=== PATIENT | female | born 1970 | race African-American/Black ===

== ENCOUNTER 2017-11-17 11:41 | Emergency (ER) | payer BC | END 2017-11-17 13:24 | disposition home or self-care (01) | LOC: ERS 11:41 | DX: M54.31 Sciatica, right side (principal); B20 Human immunodeficiency virus [HIV] disease | CPT/HCPCS: 99283 ==

== ENCOUNTER 2018-08-26 12:57 | Emergency (ER) | payer BC ==
[2018-08-26 14:08] LABS: #Eosinphils 0.1 thou/uL (0.0-0.7); #Lymphocytes 1.1 thou/uL (1.20-3.40); #Monocytes 0.3 thou/uL (0.11-0.59); %Basophils 0.5 % (0.0-1.0); %Eosinophils 3.7 % (0.0-10.0); %Lymphocytes 43.2 % (21.0-51.0); %Monocytes 11.7 % (0.0-10.0); %Neutrophils 40.9 % (42.0-75.0); Hemoglobin 10.6 g/dL (12.0-16.0); Mean Corpuscular HGB CONC 32.7 g/dL (32.0-36.0); Mean Corpuscular Hemoglobin 28.3 pg (27.0-31.0); Mean Corpuscular Volume 86.7 fL (78.0-98.0); Mean Platelet Volume 9.6 fL (7.4-10.4); Platelet Count 96 thou/uL (130-400); RBC Distribution Width 12.8 % (11.5-14.5); Red Blood Cell (RBC) Count 3.73 mill/uL (4.20-5.40); White Blood Cell (WBC) Count 2.5 thou/uL (4.8-10.8)
[2018-08-26 14:26] LABS: ALT (SGPT) 19 U/L (8-55); AST (SGOT) 32 U/L (5-34); Albumin 3.5 g/dL (3.5-5.0); Alkaline Phosphatase 69 U/L (40-150); Anion Gap 11 mmol/L (10-20); BUN (Urea Nitrogen) 7 mg/dL (7.0-18.7); Bilirubin, Total 0.4 mg/dL (0.2-1.2); Calc. Creatinine Clearance 0 mL/min (70-130); Calcium 9.1 mg/dL (7.8-10.44); Carbon Dioxide 25 mmol/L (22-29); Chloride 105 mmol/L (98-107); Estimated GFR-MDRD Greater than 90; Globulin 6.2 g/dL (2.4-3.5); Glucose 88 mg/dL (70-105); Lipase 14 U/L (8-78); Protein, Total 9.7 g/dL (6.0-8.3); Sodium 137 mmol/L (136-145)
[2018-08-26 14:30] LABS: Bilirubin Small (Negative); Blood, Urine Negative (Negative); Clarity CLEAR (Clear); Glucose, Urine (Dipstick) Negative (Negative); Leukocyte Trace (Negative); Nitrite Negative (Negative); Protein, Urine (Dipstick) 30 mg/dL (Neg-Trace); Specific Gravity, Urine 1.022 (1.002-1.036); pH, Urine 5.5 (5.0-9.0)
[2018-08-26 14:31] LABS: MDiff Complete? YES; Platelet Morphology Comment Appears Decreased; Polychromasia SLIGHT = 2-3 cells (100X) (0-2/hpf)
[2018-08-26 14:33] LABS: Pregnancy Test - Urine (BHCG) Negative (Negative); Pregu Control Background? CLEAR/WHITE (CLR/WHITE); Pregu Control Bar Appear? YES (CONTROL BAR); Specific Gravity 1.022 (1.002-1.036)
[2018-08-26 14:38] LABS: Bacteria/HPF None Seen HPF (None Seen); Hyaline Casts/LPF 7-10 HYALINE CAST LPF (0-3 Hyaline); Pathc Cast-AUWi Flag 1.36 (0-2.49); RBC/HPF 0-3 HPF (0-3); Squamous Epithelial 0-3 HPF (0-3)
[2018-08-26] MEDS ORDERED: cefTRIAXone\\ROCEPHIN 1 GM VIAL ONE (15:14)
[2018-08-26] MEDS ORDERED: Sodium Chloride 0.9% 100 ML ONE (15:14)
== END 2018-08-26 16:31 | disposition home or self-care (01) ==
LOC: ERS 12:57
DX: N39.0 Urinary tract infection, site not specified (principal); B20 Human immunodeficiency virus [HIV] disease
CPT/HCPCS: 36415; 80053; 81003; 81015; 81025; 83690; 85025; 87040; 87077; 87086; 96361; 96365; J0696; J3490

== ENCOUNTER 2018-09-14 07:43 | Emergency (ER) | payer BC ==
--- NOTE | 2018-09-14 08:25 | RAD ---
EXAM: Chest one view: HISTORY: Syncope, occasional fever COMPARISON: None FINDINGS: Heart size: Within normal limits. Lungs: Clear of acute process. No evidence for pneumonia, pleural effusion, acute edema, or pneumothorax, or other significant acute process. IMPRESSION: No significant acute intrathoracic disease.
[2018-09-14 08:29] LABS: #Eosinphils 0.1 thou/uL (0.0-0.7); #Lymphocytes 0.9 thou/uL (1.20-3.40); #Monocytes 0.1 thou/uL (0.11-0.59); #Neutrophils 2.3 thou/uL (1.40-6.50); %Basophils 0.2 % (0.0-1.0); %Lymphocytes 26.6 % (21.0-51.0); %Monocytes 3.5 % (0.0-10.0); %Neutrophils 67.8 % (42.0-75.0); Mean Corpuscular HGB CONC 31.7 g/dL (32.0-36.0); Mean Corpuscular Hemoglobin 27.4 pg (27.0-31.0); Mean Corpuscular Volume 86.4 fL (78.0-98.0); Mean Platelet Volume 10.2 fL (7.4-10.4); Platelet Count 73 thou/uL (130-400); RBC Distribution Width 12.6 % (11.5-14.5); Red Blood Cell (RBC) Count 3.65 mill/uL (4.20-5.40); White Blood Cell (WBC) Count 3.4 thou/uL (4.8-10.8)
[2018-09-14] MEDS ORDERED: Ondansetron PF 4 MG/2 ML Vial ONE (08:30)
[2018-09-14 08:33] LABS: Bacteria/HPF 1+ HPF (None Seen); Bilirubin Negative (Negative); Blood, Urine Negative (Negative); Clarity Clear (Clear); Glucose, Urine (Dipstick) Normal (Negative); Leukocyte Negative Leu/uL (Negative); Nitrite Negative (Negative); Protein, Urine (Dipstick) 70 mg/dL (Neg-Trace); RBC/HPF None Seen HPF (0-3); Red Blood Cell Cast 0-3 LPF (None Seen); Squamous Epithelial 0-3 HPF (0-3); Urobilinogen Normal mg/dL (Less than 2)
[2018-09-14 08:39] LABS: ALT (SGPT) 18 U/L (8-55); AST (SGOT) 39 U/L (5-34); Albumin 3.3 g/dL (3.5-5.0); Alkaline Phosphatase 67 U/L (40-150); Anion Gap 13 mmol/L (10-20); BUN (Urea Nitrogen) 8 mg/dL (7.0-18.7); Bilirubin, Total 0.4 mg/dL (0.2-1.2); CK (CPK) 40 U/L (29-168); Calc. Creatinine Clearance 0 mL/min (70-130); Calcium 8.4 mg/dL (7.8-10.44); Carbon Dioxide 20 mmol/L (22-29); Chloride 101 mmol/L (98-107); Estimated GFR-MDRD 75; Globulin 5.8 g/dL (2.4-3.5); Glucose 116 mg/dL (70-105); Lipase 14 U/L (8-78); Magnesium 1.9 mg/dL (1.6-2.6); Potassium 3.7 mmol/L (3.5-5.1); Protein, Total 9.1 g/dL (6.0-8.3); Sodium 130 mmol/L (136-145)
[2018-09-14 08:48] LABS: Platelet Morphology Comment Appears Decreased; RBC Morphology Normal
[2018-09-14] MEDS ORDERED: Lidocaine Viscous Sol 2% 15 ml UD Cup ONE (10:15)
[2018-09-14] MEDS ORDERED: Mag-Al 1200 mg/1200 mg/30 ML UDCUP ONE (10:15)
--- NOTE | 2018-09-14 10:48 | ULT ---
Exam: Right upper quadrant ultrasound: HISTORY: Right upper quadrant pain COMPARISON: None FINDINGS: Visualized liver:Unremarkable. Gallbladder:No evidence of gallstones, wall thickening, edema, or pericholecystic fluid. Common bile duct:Within normal limits. The visualized pancreas and right kidney are unremarkable. No evidence for abscess or abnormal fluid collection in the right upper quadrant. IMPRESSION: Unremarkable right upper quadrant ultrasound. No evidence of gallstones.
== END 2018-09-14 11:10 | disposition home or self-care (01) ==
LOC: ERS 07:43
DX: N39.0 Urinary tract infection, site not specified (principal); R55 Syncope and collapse
CPT/HCPCS: 36415; 71045; 76705; 80053; 81003; 81015; 82550; 83605; 83690; 83735; 84484; 85025; 93005; 96361; 96374; J2405

== ENCOUNTER 2018-09-29 14:28 | Inpatient (IN) | payer BC ==
[~2018-09-29 14:28] MED LIST: ISOVUE-370 76%-LOCM 1 ML ONE
[2018-09-29 17:07] VITALS: BMI 31.2
--- NOTE | 2018-09-29 19:00 | CON ---
DATE OF CONSULTATION: 09/29/2018 REASON FOR CONSULTATION: HIV with advanced immunosuppression with fever, nausea , vomiting, abdominal pain. 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 She was treated with a marked improvement in her overall status and increase in CD4 cell count from less than 50 to above 300 and suppression of viral load on active antiretroviral therapy. Unfortunately, the patient stopped coming to the clinic about 2 years ago and has stopped taking her medications and developed regression of her immunological virological control and showed up in my clinic a few days ago with fever, cough, vomiting, and abdominal pain. We ordered resumption of antiretroviral therapy, the same one she had been before on Descovy and Tivicay and also prescribed Bactrim Double Strength three times a day. A few days later, she called me saying that she was having a lot of vomiting, which I feel is due to the Bactrim component of her re-initiation of therapy. We advised her to stop both medications and contact me when the vomiting resolves, so we could start with a new medication and today she called me stating that she was having fever up to 102 to 103, abdominal cramps, and abdominal pain, so she has been admitted for further evaluation. CT abdomen and pelvis and chest x-ray, opportunistic pathogen workup. Currently, she appears better than when I saw her in the office. She denies headaches. No visual symptoms. No sore throat, odynophagia, or dysphagia. She has a sensation of pain in the epigastric area. No diarrhea. No bleeding. No genitourinary symptoms. No joint symptoms. No neurological symptoms. MEDICAL HISTORY: Disseminated histoplasmosis, HIV infection with advanced immunosuppression in the past treated with recovery of immune function and control of viremia and then discontinuation of treatment and regression of control. Appendicitis with appendectomy in 2013. ALLERGIES: NO KNOWN DRUG ALLERGY REPORTED. SHE IS INTOLERANT TO IBUPROFEN. MEDICATIONS: She had been off medications. She is supposed to restart Symtuza , had been on Bactrim, but it had to be discontinued. FAMILY HISTORY: Noncontributory. SOCIAL HISTORY: Never smoker. 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 No drug use. PHYSICAL EXAMINATION: VITAL SIGNS: Temperature 101.5, blood pressure 120/70, pulse is 88, and respirations are 18. SKIN: Normal. There is no lymphadenopathy. HEENT: Ocular movements are conjugate. Sclerae are white. Pupils are equal. Conjunctivae normal. Nasal passages patent. Oropharyngeal examination, normal. Numerous teeth in place with minor gum disease. NECK: Supple. No jugular vein distention. No carotid bruits. LUNGS: Symmetric air entry. HEART: S1 and S2. Regular rate. No S3 or S4. ABDOMEN: Soft and not distended. Tenderness in the epigastric area. Bowel sounds are present. EXTREMITIES: No joint inflammatory activity. Pulses are 2+ in dorsalis pedis. Cap refill normal. Plantar response are flexor. Moves extremities equally. NEUROLOGIC: Cognitive function appears to be intact. LABORATORY DATA: The labs are pending. The labs from the recent clinic draw about 2 weeks ago showed a CD4 cell count of 28, and a viral load of 6,030,000 viral copies. QuantiFERON was negative. Hepatitis C negative. Hepatitis A negative. RPR nonreactive. GC and chlamydia, negative. Total white cell count was 1.9 and hemoglobin 9.8. ASSESSMENT: 1. Longstanding human immunodeficiency virus infection with previous disseminated histoplasmosis with good recovery of immune function and good viremia control on previous antiretroviral therapy. 2. Discontinuation of treatment and discontinuation of clinic visits for the past few years and now development of likely opportunistic either infectious or neoplastic process with clinical deterioration, which led her to showing up in my clinic again. The patient is having fever up to 102 and abdominal complaints and probably has recurrence of disseminated histoplasmosis or another opportunistic process. We will start workup with abdomen and pelvis CT with chest x-ray and may need EGD and we will submit opportunistic infection assays and then decide what course of treatment will be. May need EGD as well and bone marrow evaluation depending on clinical course. Job ID: [id number] [facility]
[2018-09-29 19:54] LABS: BHCG - Serum Negative (NEGATIVE); Pregs Control Background? CLEAR/WHITE (CLR/WHITE); Pregs Control Bar Appear? YES (CONTROL BAR)
[2018-09-29 20:04] LABS: Lactic Acid 1.1 mmol/L (0.5-2.2)
--- NOTE | 2018-09-29 20:31 | RAD ---
EXAM: CHEST TWO VIEWS: 09/29/18 HISTORY: Syncope. COMPARISON: 09/14/18. FINDINGS: Heart size is normal. The lungs are clear. No confluent pneumonia, overt edema, or pleural effusion. IMPRESSION: No acute intrathoracic disease. POS: RRE
[2018-09-29] MEDS: Sodium Chloride 0.9% 1,000 ML IV SCH (20:37)
[2018-09-29] MEDS ORDERED: Acetaminophen 650 MG Suppository PR PRN (20:48)
[2018-09-29] MEDS ORDERED: Acetaminophen 325 MG TAB PO PRN (20:49)
--- NOTE | 2018-09-29 23:03 | CT ---
CT abdomen and pelvis with IV contrast. Oral contrast was administered. INDICATIONS: Abdominal pain. Fever. HIV positive. COMPARISON: 07/10/2013 FINDINGS: Lung bases are clear Liver, spleen, and pancreas appear unremarkable. Stomach and duodenum appear unremarkable. Adrenal glands appear normal. Kidneys appear unremarkable. Collecting structures and urinary bladder appear unremarkable. Small bowel loops are normal caliber and exhibit normal fold pattern. Appendix is surgically absent. Colon is unremarkable. Aorta is normal caliber. Nonspecific para-aortic lymphadenopathy. Nonspecific mesenteric adenopathy Uterus is enlarged and lobulated. There is evidence of a fibroid from the uterine fundus measuring 4. 6 cm. Another fibroid from the right myometrium measures 5 cm. An exophytic mass or fibroid in the right pelvis measures 5.5 cm. Subcutaneous tissues, abdominal wall, and muscular structures appear unremarkable. Osseous structures appear unremarkable. IMPRESSION: Large lobulated heterogeneous uterus suggesting numerous myometrial fibroids. A masslike area in the right pelvis probably represents an exophytic fibroid measuring 5 to 6 cm. MRI of pelvis could confirm that these masses all represent leiomyoma. Nonspecific mesenteric and periaortic adenopathy, probably related to HIV status. Otherwise no acute process identified.
[2018-09-29] MEDS ORDERED: Ondansetron PF 4 MG/2 ML Vial IVP PRN (23:10)
[2018-09-29] MEDS ORDERED: Ondansetron ODT 4 MG TAB PO PRN (23:10)
[2018-09-29] MEDS ORDERED: Meropenem 1 GM in Sodium Chloride 0.9% 100 ML IVPB SCH (23:15)
[2018-09-29] MEDS ORDERED: Vancomycin HCl 1 GM in Premix Bag 1 BAG IVPB SCH (23:15)
[2018-09-29] MEDS ORDERED: Vancomycin HCl 1.5 GM in Sodium Chloride 0.9% 250 ML 300 ML IVPB SCH (23:30)
[2018-09-30 00:44] LABS: INR-International Normal Ratio 1.3; PTT 41.5 SEC (22.9-36.1); Prothrombin Time 16.3 SEC (12.0-14.7)
[2018-09-30 00:59] LABS: ALT (SGPT) 17 U/L (8-55); AST (SGOT) 42 U/L (5-34); Albumin 3.1 g/dL (3.5-5.0); Alkaline Phosphatase 66 U/L (40-150); Anion Gap 12 mmol/L (10-20); BUN (Urea Nitrogen) 5 mg/dL (7.0-18.7); Bilirubin, Total 0.7 mg/dL (0.2-1.2); CRP (Inflammatory) 7.99 mg/dL (= or < 0.5); Calc. Creatinine Clearance 109 mL/min (70-130); Calcium 8.5 mg/dL (7.8-10.44); Carbon Dioxide 21 mmol/L (22-29); Chloride 95 mmol/L (98-107); Estimated GFR-MDRD Greater than 90; Globulin 5.9 g/dL (2.4-3.5); Glucose 116 mg/dL (70-105); Lipase 13 U/L (8-78); Magnesium 1.6 mg/dL (1.6-2.6); Potassium 3.9 mmol/L (3.5-5.1); Sodium 124 mmol/L (136-145)
[2018-09-30] MEDS ORDERED: Micafungin 100 MG in Sodium Chloride 0.9% 100 ML IVPB SCH (01:00)
[2018-09-30 01:08] LABS: #Lymphocytes 0.5 thou/uL (1.20-3.40); #Monocytes 0.2 thou/uL (0.11-0.59); #Neutrophils 2.1 thou/uL (1.40-6.50); %Eosinophils 1.2 % (0.0-10.0); %Lymphocytes 18.7 % (21.0-51.0); %Monocytes 7.6 % (0.0-10.0); %Neutrophils 72.5 % (42.0-75.0); Hemoglobin 8.5 g/dL (12.0-16.0); Mean Corpuscular HGB CONC 32.4 g/dL (32.0-36.0); Mean Corpuscular Hemoglobin 27.2 pg (27.0-31.0); Mean Corpuscular Volume 84.1 fL (78.0-98.0); Mean Platelet Volume 11.3 fL (7.4-10.4); Platelet Count 73 thou/uL (130-400); Platelet Morphology Comment Appears Decreased; RBC Distribution Width 12.6 % (11.5-14.5); Red Blood Cell (RBC) Count 3.11 mill/uL (4.20-5.40); White Blood Cell (WBC) Count 2.8 thou/uL (4.8-10.8)
[2018-09-30] MEDS: Piperacillin/Tazobactam 3.375 GM in Sodium Chloride 0.9% 100 ML IVPB SCH ×3 (02:30→08:34)
[2018-09-30] MEDS: Sodium Chloride 0.9% 1,000 ML IV SCH ×2 (04:28→08:34)
[2018-09-30 06:42] LABS: #Lymphocytes 0.4 thou/uL (1.20-3.40); #Monocytes 0.1 thou/uL (0.11-0.59); #Neutrophils 2.1 thou/uL (1.40-6.50); %Basophils 0.3 % (0.0-1.0); %Eosinophils 0.5 % (0.0-10.0); %Lymphocytes 15.7 % (21.0-51.0); %Monocytes 4.9 % (0.0-10.0); %Neutrophils 78.7 % (42.0-75.0); Mean Corpuscular HGB CONC 30.9 g/dL (32.0-36.0); Mean Corpuscular Volume 84.1 fL (78.0-98.0); Mean Platelet Volume 11.2 fL (7.4-10.4); Platelet Count 74 thou/uL (130-400); RBC Distribution Width 12.9 % (11.5-14.5); Red Blood Cell (RBC) Count 3.07 mill/uL (4.20-5.40); White Blood Cell (WBC) Count 2.6 thou/uL (4.8-10.8)
[2018-09-30 06:57] LABS: Anion Gap 10 mmol/L (10-20); BUN (Urea Nitrogen) 5 mg/dL (7.0-18.7); Calc. Creatinine Clearance 110 mL/min (70-130); Calcium 8.7 mg/dL (7.8-10.44); Carbon Dioxide 24 mmol/L (22-29); Chloride 95 mmol/L (98-107); Estimated GFR-MDRD Greater than 90; Glucose 113 mg/dL (70-105); Potassium 3.7 mmol/L (3.5-5.1); Sodium 125 mmol/L (136-145)
[2018-09-30] MEDS ORDERED: Enoxaparin Sodium 40 MG/0.4 ML SYRINGE SC SCH (09:00)
[2018-09-30] MEDS ORDERED: Vancomycin HCl 1.25 GM in Sodium Chloride 0.9% 250 ML 250 ML IVPB SCH ×2 (11:00→22:00)
[2018-09-30 11:15] VITALS: BP 157/83; TEMP 99.7
--- NOTE | 2018-09-30 11:43 | PDOC.HOSPP ---
- Subjective Subjective: Patient seen and examined. No overnight events, pt is confused - Objective Vital Signs & Weight: Vital Signs (12 hours) Temp Pulse Resp BP Pulse Ox 09/30/18 11:12 99.7 F H 106 H 16 157/83 H 100 09/30/18 07:24 97.5 F L 111 H 16 134/81 99 09/30/18 06:46 98.4 F 09/30/18 04:35 101.4 F H 108 H 16 138/84 100 09/30/18 01:35 99.3 F 09/30/18 00:00 100.4 F H 101 H 16 133/68 99 Weight Weight 170 lb 12.8 oz I&O: 09/29/18 09/30/18 10/01/18 06:59 06:59 06:59 Intake Total 1999 Balance 1999 Result Diagrams: 09/30/18 06:09 09/30/18 06:09 Radiology Reviewed by me: Yes ROS - Review of Systems All systems: All other ROS were reviewed and found negative. Eyes: denies: pain, vision change, conjunctivae inflammation, eyelid inflammation, redness, other ENT: denies: ear pain, ear discharge, nose pain, nose discharge, nose congestion , mouth pain, mouth swelling, throat pain, throat swelling, other Respiratory: denies: cough, dry, shortness of breath, hemoptysis, SOB with excertion, pleuritic pain, sputum, wheezing, other Cardiovascular: denies: chest pain, palpitations, orthopnea, paroxysmal noc. dyspnea, edema, light headedness, other Gastrointestinal: denies: nausea, vomitting, abdominal pain, diarrhea, constipation, melena, hematochezia, other Genitourinary: denies: dysuria, frequency, incontinence, hematuria, retention, other Musculoskeletal: denies: neck pain, shoulder pain, arm pain, back pain, hand pain, leg pain, foot pain, other Skin: denies: rash, lesions, riley, bruising, other Neurological: reports: confusion. denies: weakness, numbness, incoordination, change in speech, seizures, other - Medication Medications: Active Medications Generic Name Dose Route Start Last Admin Trade Name Freq PRN Reason Stop Dose Admin Acetaminophen 650 mg 09/29/18 20:48 09/29/18 22:03 Tylenol NH 650 mg Q4H PRN Administration Headache/Fever or Pain Acetaminophen 650 mg 09/29/18 20:49 09/30/18 04:46 Tylenol PO 650 mg Q4H PRN Administration Fever > 101 Sodium Chloride 1,000 mls @ 150 mls/hr 09/29/18 18:45 09/30/18 08:34 Normal Saline 0.9% IV 1,000 mls .[id number] VANDA Administration Micafungin Sodium 100 mg/ 100 mls @ 100 mls/hr 09/30/18 01:00 09/30/18 01:29 Sodium Chloride IVPB 100 mls Q24H VANDA Administration Piperacillin Sod/Tazobactam 100 mls @ 200 mls/hr 09/30/18 02:00 09/30/18 08: 34 Sod 3.375 gm/ Sodium Chloride IVPB 100 mls 0200,0800,1400,2000 VANDA Administration - Exam NAD, awake alert Eye: anicteric sclera ENT: normocephalic atraumatic, no oropharyngeal lesions Neck: symmetric, no JVD, no Thyromegaly Heart: RRR, no murmur, no gallops Respiratory: CTAB, no wheezes, no rales, no ronchi Gastrointestinal: soft, non-tender, non-distended, normal bowel sounds Extremities: no cyanosis, no clubbing, no edema Skin: normal turgor, no lesions, no rashes Neurological: CN's grossly intact, normal sensation to touch, no focal deficits Musculoskeletal: normal tone, normal strength Psychiatric: normal affect Hosp A/P (1) H/O AIDS with histoplasmosis Code(s): B20 - HUMAN IMMUNODEFICIENCY VIRUS [HIV] DISEASE; Z86.19 - PERSONAL HISTORY OF OTHER INFECTIOUS AND PARASITIC DISEASES Status: Acute (2) Hyponatremia Code(s): E87.1 - HYPO-OSMOLALITY AND HYPONATREMIA Status: Acute (3) Obesity (BMI 30.0-34.9) Code(s): E66.9 - OBESITY, UNSPECIFIED Status: Acute (4) Pancytopenia with fever Code(s): D61.818 - OTHER PANCYTOPENIA; R50.81 - FEVER PRESENTING WITH CONDITIONS CLASSIFIED ELSEWHERE Status: Acute - Plan old records reviewed/req, plan discussed w/ family, continue antibiotics Dr Reyna following continue to follow culture further testing and treatment will defer to ID medication reviewed as below symptomatic treatment
--- NOTE | 2018-09-30 16:15 | DIS ---
DATE OF ADMISSION: 09/29/2018 DATE OF DISCHARGE: 09/30/2018 PRIMARY CARE PHYSICIAN: Dr. Willi Quiñonez. DISCHARGE DISPOSITION: Against medical advice. PRIMARY DISCHARGE DIAGNOSES: Pancytopenia with fever, hyponatremia. SECONDARY DISCHARGE DIAGNOSES: History of acquired immune deficiency syndrome with histoplasmosis, obesity with BMI 31. PRIMARY PROCEDURE/OPERATION: None. RADIOLOGICAL INVESTIGATION: Abdomen and pelvis CT scan, chest x-ray. SIGNIFICANT LABORATORY DATA: WBC 2.6, hemoglobin 8.0, platelets 74. INR 1.3. Sodium 125, CRP 7.9. DISCHARGE MEDICATIONS: The patient left against medical advice. CONTRAINDICATION: None. CODE STATUS: Full code. INPATIENT CAMERA MACHINIST: Dr. Reyna was consulted while in hospital. TEST RESULT PENDING ON DISCHARGE: None. ALLERGIES: NO KNOWN DRUG ALLERGIES. DISCHARGE PLAN: Posthospital, the patient will follow up with primary care physician as well as Dr. Reyna as instructed. HOSPITAL COURSE: A 48-year-old female, who was admitted yesterday by Dr. Castellanos. There is no H and P dictated at this point. I am seeing this patient only as a progress note. This patient was already evaluated by Dr. Reyna yesterday. She has underlying history of AIDS and histoplasmosis and this time, she was admitted for fever of unknown origin. She has pancytopenia. Dr. Reyna was thinking that she might have recurrence of histoplasmosis. He ordered CT abdomen and pelvis, which showed myometrial lesion. The patient also had hyponatremia, which was treated with IV fluid. The patient was given broad-spectrum antibiotic therapy and antifungal therapy. Unfortunately, this patient was extremely noncompliant and she was not taking micafungin and Zosyn while in hospital as well as she was not taking any Zosyn. The patient is able to make her own decision. She is alert and awake. She understand consequences of going home. We tried to explain her to stay in hospital, but unfortunately, it was not successful, and the patient decided to leave against medical advice. Job ID: [id number]
--- NOTE | 2018-09-30 17:42 | PRG ---
DATE OF SERVICE: 09/30/2018 SUBJECTIVE: Ms. Ashraf is all dressed up, sitting by the bedside. Reportedly has declined a number of interventions including treatments. Does not want to have any IV started and she wants to go home basically. I have discussed with her and with her daughter and explained that we still do not have a diagnosis. Her CT abdomen and pelvis did not show any specific abnormality other than lymphadenopathy. Her chest x-ray did not have any pneumonia. We are concerned with the possibility of recurrence of disseminated histoplasmosis or another opportunistic infectious process. All the assays have been submitted. PHYSICAL EXAMINATION: VITAL SIGNS: Showed a T-max of 101.4, BP 150/80, pulse 106, respirations 16, and O2 saturation 100. GENERAL: She does not appear in distress. She is awake, oriented, follows commands. LUNGS: Clear. HEART: S1 and S2. Regular rate. ABDOMEN: Soft, not distended. EXTREMITIES: Moves extremities equally. LABORATORY DATA: White cell count 2.6, hemoglobin 8, platelets 74,000. INR 1.3. Chemistry with CRP 7.99, albumin 3.1, AST 42, bilirubin 0.7, ALT 17, alkaline phosphatase 66. Blood culture thus far negative with Cryptococcus antigen, final result was negative. ASSESSMENT AND DISCUSSION: Advanced human immunodeficiency virus infection due to poor compliance with anti-retroviral therapy and clinic visits. It seems like there is a little bit of a paranoid delusion, although she is not overtly psychotic, but she seems to have a lot of suspicion regarding the management of her disease. This may be part of the reason why she stopped coming to visits and stop taking treatments. Anyways, she has declined various interventions and is really insisting in going home. Does not want us to continue managing her case and I think she is not inclined to come back for clinic visits. She is going to establish care with another physician in [facility], who is a primary care physician and I will contact him and discuss her case with him. Maybe she would benefit from a psychotropic medications such as Abilify, which might make her less resistant to treatment. We still have to identify and treat this likely opportunistic process. She has a very low CD4 cell count and she will not survive this illness if she continues with this behavior. Job ID: [id number]
--- NOTE | 2018-10-01 09:15 | HP ---
PRIMARY CARE PHYSICIAN: The patient has no PCP. The patient follows with Dr. Reyna as outpatient. However, has been noncompliant. CODE STATUS: Full code. TIME OF EVALUATION: 11:13 p.m. This note has been placed late due to dictation system problems. HISTORY OF PRESENT ILLNESS: This is a 48-year-old female patient, past medical history of HIV, noncompliant, has diagnosis 3 years ago, however, has not been following with her medications. She is used to follow with Dr. Reyna. However, she had not been as I mentioned very compliant. The patient had visited Dr. Reyna a few days ago with symptoms of fever, cough, vomiting, abdominal pain and antiretroviral therapy was restarted associated with Bactrim DS. Due to discontinued. She continued to have the symptoms, came here to the hospital and she has been seen at bedside, she seems to be stable. The patient is requesting to go home. However, we have explained to her that we need to find out what is the reason for her symptoms. A CAT scan has been done, it was negative. No significant abnormalities. We will follow recommendation as per Dr. Reyna. The symptoms were mild to moderate. No clear triggers, no alleviating factors. ALLERGIES: THE PATIENT HAS INTOLERANCE TO IBUPROFEN. REPORTED MEDICATIONS: The patient has no medications. FAMILY HISTORY: Reviewed and noncontributory for current presentation. PAST MEDICAL HISTORY: As reported in HPI. The patient has HIV. SOCIAL HISTORY: The patient lives at home with family. PAST SURGICAL HISTORY: The patient has a history of and tubal ligation. REVIEW OF SYSTEMS: CONSTITUTIONAL: The patient has fever, chills, and generalized weakness. RESPIRATORY: No cough, sputum production, or shortness of breath. CARDIOVASCULAR: No chest pain or palpitation. GASTROINTESTINAL: No nausea, vomiting, diarrhea, or abdominal pain. MITER GRINDER OPERATOR: No dizziness, headache, or feeling lightheaded. GENITOURINARY: No burning on urination. EXTREMITIES: No leg swelling. PHYSICAL EXAMINATION: VITAL SIGNS: On presentation, temperature was 101.5, blood pressure 120/70 with heart rate 88, respiratory rate was 18. GENERAL APPEARANCE: The patient is alert, oriented, not in acute distress. HEENT: Eyes, normal conjunctivae. Moist oral mucosa. Anicteric. No JVD. RESPIRATORY: Bilateral air entry. No rales or wheezes. Symmetric expansion. CARDIOVASCULAR: Normal rate. Regular rhythm. No murmurs, no gallop, no edema. ABDOMEN: Soft. Normal bowel sounds. MUSCULOSKELETAL: Baseline range of motion and strength. SKIN: Warm, intact. No pallor. No rash. No redness. Capillary refill seems to be intact. NEURO: No evidence of any new focal weakness. Cranial nerves seem to be intact. PSYCH: The patient is in good mood. No anxiety. Optimal judgment. IMAGING: Abdomen and pelvis CT was done. The patient has large lobulated heterogeneous uterus suggesting numerous myometrial fibroids, a masslike area of the right pelvis probably represents exophytic fibroid measuring 5-6 cm. MRI of the pelvis could confirm that these masses all represent leiomyoma, nonspecific mesenteric and periaortic adenopathy probably related to HIV status. Otherwise, no acute process identified. LABORATORY DATA: Reviewed. The patient has a white count of 2.8, hemoglobin 8.5, MCV 84.1, platelet count 73. PT 16.3, INR 1.3, PTT 41.5. Chemistry; sodium 124, potassium 3.9, chloride 95, carbon dioxide 21, anion gap 12, BUN 5, creatinine 0.7, GFR greater than 90, glucose 116, lactic acid 1.1, calcium 9.5, magnesium 1.6, total bilirubin 0.7. LFTs were negative. LABORATORY DATA: White count 2.8, hemoglobin 8.5, MCV 84, platelet count 73. Coagulation; PT 16.3, INR 1.3, PTT 41.5. Chemistry; sodium 124, potassium 3.9, chloride 95, carbon dioxide 21, anion gap 12, BUN 5, creatinine 0.7, glucose 116, GFR greater than 90. Lactic acid was normal. Calcium 8.5, magnesium 1.6, alkaline phosphatase 66, C-reactive protein 7.9. PSA was normal. test was negative. ASSESSMENT AND PLAN: The patient will be placed in the hospital with following medical problems. 1. Human immunodeficiency virus infection. The patient is noncompliant. CD4 count was low, was in the 20s. Dr. Reyna has been following this patient, but she is noncompliant, not willing to have any treatment. CT abdomen was negative. We will follow Dr. Reyna' recommendations. 2. Pancytopenia, likely secondary to human immunodeficiency virus infection. The patient needs to be started on antiretroviral therapy as per Dr. Reyna' recommendation. 3. Hyponatremia, sodium 124. We will replace sodium. We will monitor. This is chronic. 4. Deep venous thrombosis prophylaxis. The patient is willing to go home. I explained to her that the plan will be depending on Dr. Reyna. Job ID: [id number]
[2018-10-02 17:08] LABS: CMV DNA-PCR Test Positive < 200 IU/mL (Negative)
== END 2018-09-30 16:08 | disposition left against medical advice (07) | DRG 975 ==
LOC: SURG A 15:47 → UNDOADMIN 15:47 → T4-A 15:49 → EEVIPCON 15:49
PROVIDERS: ADMIT Internal Medicine; ATTEND Internal Medicine
DX: B20 Human immunodeficiency virus [HIV] disease (principal); E87.1 Hypo-osmolality and hyponatremia; B39.9 Histoplasmosis, unspecified; E66.9 Obesity, unspecified; Z68.31 Body mass index [BMI] 31.0-31.9, adult; R59.1 Generalized enlarged lymph nodes; F22 Delusional disorders; Z91.14 Patient's other noncompliance with medication regimen
CPT/HCPCS: 36415; 71046; 74177; 80048; 80053; 83605; 83690; 83735; 84443; 84703; 85025; 85610; 85730; 86140; 87040; 87116; 87206; 87449; 87497; 87899; J2248; J2543; J3370; J3490; J7050; Q9966